=== PATIENT | female | born 1965 | race Two or more races ===

== ENCOUNTER 2022-07-14 09:46 | Outpatient (REF) | payer OTHER, SELFPAY ==
[2022-07-14 10:13] LABS: MANUAL DIFF FLAG NO
[2022-07-14 10:46] LABS: Basophils Absolute Auto 0.1 X10*3/uL (0.0-0.2); Basophils Percent Auto 0.7 % (0-2); Eosinophils Absolute Auto 0.1 X10*3/uL (0.0-0.4); Eosinophils Percent Auto 2.1 % (0-4); Hematocrit 42.2 % (37.0-47.0); Hemoglobin 12.9 g/dl (12.0-16.0); Imm Gran Abs Auto 0.03 X10*3/uL (0.00-0.03); Imm Gran Pct Auto 0.4 % (0.0-0.4); Lymphocytes Absolute Auto 1.7 X10*3/uL (1.2-4.9); Lymphocytes Percent Auto 25.1 % (20-40); Mean Corpuscular HGB Conc 30.6 g/dl (31.0-35.0); Mean Corpuscular Hemoglobin 26.9 pg (27.0-33.0); Mean Corpuscular Volume 88.1 fL (80.0-98.0); Mean Platelet Volume 10.7 fL (9.4-12.3); Monocytes Absolute Auto 0.4 X10*3/uL (0.1-1.2); Neutrophils Absolute Auto 4.5 x10*3/uL (2.0-8.3); Neutrophils Percent Auto 65.7 % (45-73); Platelet Count 295 X10*3/uL (160-400); Red Blood Count 4.79 X10*6/uL (4.20-5.50); Red Cell Distribution Width 15.9 % (11.0-16.0); White Blood Count 6.8 X10*3/uL (4.8-10.8)
[2022-07-14 11:15] LABS: Anion Gap 14 (12-20); Blood Urea Nitrogen 21 mg/dL (9-16); Calcium 9.7 mg/dL (8.4-10.2); Carbon Dioxide 30 mmol/L (22-29); Chloride 102 mmol/L (96-108); Estimated Glomerular Filt Rate 42; Glucose Random 112 mg/dL (60-115); Potassium 4.2 mmol/L (3.3-5.1); Sodium 142 mmol/L (135-145)
[2022-07-14 11:36] LABS: Erythrocyte Sedimentation Rate 38 MM/HR (0-20)
== END 2022-07-14 09:47 | disposition home or self-care (01) ==
LOC: HO.LAB 09:46
PROVIDERS: PCP Internal Medicine; Visit Provider Psychiatry & Neurology Neurology
DX: G93.2 Benign intracranial hypertension (principal)
CPT/HCPCS: 36415; 80048; 85025; 85652

== ENCOUNTER 2022-07-31 09:18 | Day surgery (SDC) | payer OTHER, SELFPAY ==
[2022-07-31] VITALS (9 sets, daily range): BP systolic 133–154; BP diastolic 53–87; PULSE 40–72; RESP 16–18; TEMP 36.1–36.2; O2SAT 99; BMI 46.5
--- NOTE | ~2022-07-31 | FL_ITS ---
EXAMINATION: XR LUMBAR PUNCTURE CLINICAL INFORMATION: Pseudotumor cerebri. COMPARISON: None TECHNIQUE: Following explaining fluoroscopy-guided lumbar puncture procedure, benefits and risks, a written consent was obtained. Patient was placed prone on fluoroscopy table and a marker was placed overlying the L4-L5 disc level and the skin was marked. The marked area was cleaned in an aseptic manner with 2% chlorhexidine solution. 1% lidocaine was injected at the skin level in the left paramidline region overlying the L4-L5 disc level. A long 6 inch 20-gauge needle was then inserted from the skin intrathecally at the L4-L5 disc level. Patient was placed in the left lateral decubitus view, stylet removed and opening CSF pressure was obtained. Subsequently clear CSF fluid was collected in 4 test tubes. Stylet was reintroduced and the entire needle was removed. Complete hemostasis achieved at puncture site. Sterile Band-Aid applied postprocedure. Patient tolerated procedure extremely well. FINDINGS: On the single prone lumbar spine image the vertebral heights, alignment and the disc heights are normal. SI joints are symmetrical. Small enthesophytes seen along the left anterior superior iliac spine. Opening CSF pressure measured 18 cm of water. [id number] mL of clear CSF was collected in 4 test tubes and sent to lab as per referring physician's orders. FLUOROSCOPY TIME: 0.4 minutes. DOSE AREA PRODUCT: 5.340 uGy-m2 (microgray-meter squared) FL/FL guided lumbar puncture LP IMPRESSION: Successful fluoroscopy-guided lumbar puncture performed without immediate complications.
[2022-07-31 09:41] LABS: MANUAL DIFF FLAG NO
[2022-07-31 09:45] LABS: Basophils Percent Auto 0.6 % (0-2); Eosinophils Absolute Auto 0.2 X10*3/uL (0.0-0.4); Eosinophils Percent Auto 3.7 % (0-4); Hematocrit 40.1 % (37.0-47.0); Hemoglobin 12.7 g/dl (12.0-16.0); Imm Gran Abs Auto 0.02 X10*3/uL (0.00-0.03); Imm Gran Pct Auto 0.4 % (0.0-0.4); Lymphocytes Absolute Auto 1.6 X10*3/uL (1.2-4.9); Lymphocytes Percent Auto 29.3 % (20-40); Mean Corpuscular HGB Conc 31.7 g/dl (31.0-35.0); Mean Corpuscular Hemoglobin 27.5 pg (27.0-33.0); Mean Corpuscular Volume 86.8 fL (80.0-98.0); Mean Platelet Volume 10.2 fL (9.4-12.3); Monocytes Absolute Auto 0.4 X10*3/uL (0.1-1.2); Monocytes Percent Auto 6.7 % (2-11); Neutrophils Absolute Auto 3.2 x10*3/uL (2.0-8.3); Neutrophils Percent Auto 59.3 % (45-73); Platelet Count 264 X10*3/uL (160-400); Red Blood Count 4.62 X10*6/uL (4.20-5.50); Red Cell Distribution Width 14.8 % (11.0-16.0); White Blood Count 5.4 X10*3/uL (4.8-10.8)
[2022-07-31 09:50] LABS: Prothrombin Time 11.1 SEC (10.0-13.1)
[2022-07-31 09:52] LABS: Partial Thromboplastin Time 31.8 SEC (26.0-36.4)
[2022-07-31 10:04] LABS: Glucose, Whole Blood 98 mg/dL (60-115)
[2022-07-31 13:32] LABS: Glucose CSF 65 mg/dL; Total Protein CSF 24.8 mg/dL (15-45)
[2022-07-31 13:41] LABS: CSF Appearance Clear, Colorless; CSF Tube # 2
[2022-07-31 14:37] LABS: Appearance CSF CLEAR
[2022-07-31 14:38] LABS: CSF Tube # 4; Color CSF COLORLESS; Red Blood Cell CSF 0 MM*3; White Blood Cell CSF 6 MM*3
[2022-07-31 14:41] LABS: CSF Monos 7 %; Lymphocytes CSF 93 %
== END 2022-07-31 15:01 | disposition home or self-care (01) ==
PROVIDERS: Radiology Diagnostic Radiology; PCP Internal Medicine; Visit Provider Psychiatry & Neurology Neurology
PROC: 009U3ZZ Drainage of Spinal Canal, Percutaneous Approach (ICD-10-PCS; CPT 62270; principal; 2022-07-31 11:00)
DX: G93.2 Benign intracranial hypertension (principal); G44.209 Tension-type headache, unspecified, not intractable; I10 Essential (primary) hypertension; E11.9 Type 2 diabetes mellitus without complications; E03.9 Hypothyroidism, unspecified; U07.1 COVID-19; F32.9 Major depressive disorder, single episode, unspecified; E66.01 Morbid (severe) obesity due to excess calories; Z68.42 Body mass index [BMI] 45.0-49.9, adult; Z79.84 Long term (current) use of oral hypoglycemic drugs; Z79.899 Other long term (current) drug therapy
CPT/HCPCS: 36415; 62328; 82945; 82947; 84157; 85025; 85610; 85730; 87015; 87070; 87205; 89051